=== PATIENT | female | born 1965 | race Caucasian/White ===

== ENCOUNTER → 2017-02-07 | Day surgery (SDC) | payer BC ==
[2017-01-02 13:35] VITALS: Ht 165.1 cm; Wt 79.1 kg
--- NOTE | 2017-01-28 08:21 | DIAGNOSTIC IMAGING REPORT ---
TWO VIEW CHEST CLINICAL HISTORY: Preoperative examination. FINDINGS: PA and lateral chest radiographs are compared to chest x-ray and chest CT dated 07/11/2011. The cardiomediastinal silhouette is unremarkable. There is mild atherosclerotic calcification of the thoracic aorta. The lungs and pleural spaces are clear. There is no pneumothorax. The bony thorax appears intact. Fusion hardware is noted in the cervical spine. IMPRESSION: No active disease in the chest. Electronically signed by: Kai Dow M.D. 01/28/2017 8:19 AM Dictated Date/Time: 01/28/2017 8:17 AM
[2017-01-28 09:41] LABS: HEMATOCRIT 40.7 % (37-47); MEAN CELL VOLUME 87.5 fL (80-100); MEAN CORPUSCULAR HEMOGLOBIN 29.7 pg (25-34); MEAN CORPUSCULAR HGB CONC 33.9 g/dl (32-36); MEAN PLATELET VOLUME 10.1 fL (7.4-10.4); PLATELET COUNT 248 K/uL (130-400); RED BLOOD COUNT 4.65 M/uL (4.2-5.4)
[2017-01-28 09:53] LABS: PARTIAL THROMBOPLASTIN RATIO 1.2; PROTHROMBIN TIME (PATIENT) 10.9 SECONDS (9.0-12.0)
[~2017-02-07] VITALS: Ht 165.1 cm; Wt 79.1 kg
[~2017-02-07] MED LIST: ATROPINE SULFATE 0.1 MG/ML 5ML SYR IV PRN; BUPIVACAINE 0.5 % 5 MG/1 ML MPF 30ML VIAL ONE; CEFAZOLIN 1000MG/55 ML D5W IV SCH; DEXAMETHASONE SOD INJ 4 MG/ML VIAL ONE; EpHEDrine SULFATE INJ 50 MG/ML AMP IV PRN; FENTANYL CITRATE INJ 50 MCG/1 ML 2 ML VIAL IV PRN; FENTANYL CITRATE INJ 50 MCG/1 ML 2 ML VIAL ONE; FLUO40CA8 PO; HYDROCODONE/ACETAMOPHEN 5/325MG TAB PO PRN; LACTATED RINGER'S 1000ML 1,000 ML IV SCH; LEVO125T72 PO; LIDOCAINE HCL 1% 20 ML VIAL ONE; LIDOCAINE HCL 2% 2 ML VIAL (20MG/ML) ONE; METOCLOPRAMIDE HCL INJ 5 MG/ML 2 ML VIAL IV PRN; MIDAZOLAM HCL 1 MG/ML 2ML VIAL ONE; ONDANSETRON INJ 2 MG/ML 2 ML VIAL IV PRN; ONDANSETRON INJ 2 MG/ML 2 ML VIAL ONE; OXYCODONE/ACETAMINOPHEN 5-325 TAB ONE; OXYCODONE/ACETAMINOPHEN 5-325 TAB PO PRN; PHENOL EZ SWABS 89% APPLICATOR EX ONE; PROPOFOL IV EMULSION 10 MG/ML 20 ML VIAL IV ONE; SILVER SULFADIAZINE 1% CR 50 GM JAR EXT ONE; SODIUM CHLORIDE 0.9% 1000ML 1,000 ML IV SCH
--- NOTE | 2017-02-07 06:51 | History & Physical Bridge - [place] ---
H&P Re-Evaluation Bridge Note: I have examined the patient, reviewed the History & Physical and in the interval since the performance of the History & Physical I have noted the following changes of clinical significance: No changes noted
[2017-02-07 08:43] VITALS: TEMP 36.4
--- NOTE | 2017-02-07 08:43 | Discharge Instructions-SurgCtr ---
Discharge Instructions Date of Service Feb 07, 2017. Visit Reason for Visit: Right 2ND Hammertoe, Metatarsalgia, Pain Discharge Discharge Diagnosis / Problem: right foot painful 2, 5 hammertoe and 2nd metatarsalgia, ingrown Discharge Goals Goal(s): Decrease discomfort, Improve function Activity Recommendations Activity Limitations: as noted below (use boot with partial weightbearing to the right foot with crutches) Lifting Limitations: none Exercise/Sports Limitations: none May Resume Sexual Activity: after follow-up appointment Shower/Bathe: keep incision dry Driving or Machine Use: no driving until cleared Weightbearing Status: Right partial Anesthesia . Post Anesthesia Instructions: If you have had General Anesthesia or IV Sedation: * Do not drive today. * Resume driving when surgeon permits. * Do not make important decisions or sign legal documents today. * Call surgeon for: 1. Temperature elevations greater than 101 degrees F. 2. Uncontrollable pain. 3. Excessive bleeding. 4. Persistent nausea and vomiting. 5. Medication intolerance (nausea, vomiting or rash). * For nausea and vomiting use only clear liquids such as: tea, soda, bouillon until nausea subsides, then gradually increase diet as tolerated. * If you have any concerns or questions, call your surgeon's office. If physician is unavailable and it is an emergency, call 911 or go to the nearest emergency room. . Instructions / Follow-Up Instructions / Follow-Up keep dressings clean dry and intact elevate right foot take pain medication as directed call [phone] with problems over the weekend f/u Friday with me Diet Recommendations Home Diet: no limitations Procedures Procedures Performed: Right Foot Second And Fifth Digit Surgical Correction Hammertoe Deformity Correction By Attempting To Remove The Bump And Realign The Joint With Fixation And Fusion With Right Second Metatarsal Shortening Osteotomy; Right Lateral Hallux Ingrown Toenail Removal Pending Studies Studies pending at discharge: no Medical Emergencies . Who to Call and When: Medical Emergencies: If at any time you feel your situation is an emergency, please call 911 immediately. . Non-Emergent Contact Non-Emergency issues call your: Primary Care Provider Call Non-Emergent contact if: temperature is above 101.5 [phone] . . "Provider Documentation" section prepared by Shanna Sinha. . [place] Drug Monitoring Program Search Results: patient reviewed within database, no issues identified
--- NOTE | 2017-02-07 08:46 | [facility] Post Operative Brief Note ---
Immediate Operative Summary Operative Date Feb 07, 2017. Pre-Operative Diagnosis Right Foot 2nd Hammertoe, Metatarsalgia, Pain Post-Operative Diagnosis same Procedure(s) Performed Right Foot Second And Fifth Digit Surgical Correction Hammertoe Deformity Correction By Attempting To Remove The Bump And Realign The Joint With Fixation And Fusion With Right Second Metatarsal Shortening Osteotomy; Right Lateral Hallux Ingrown Toenail Removal Surgeon Dr. Valarie Hendrix [employer] Surgeon(s) 0 Estimated Blood Loss 1 cc Findings none right foot Specimens A. Bone from Right Foot Drains none Anesthesia local iv sedation Complication(s) None Disposition Recovery Room / PACU
[2017-02-07 09:24] VITALS: BP 111/69; PULSE 56; O2SAT 96
--- NOTE | 2017-02-07 09:27 | Anesthesia Progress Nt - [facility] ---
Anesthesia Post Op Note Date & Time Feb 07, 2017 at 09:26 Vital Signs Pain Intensity: 4 Vital Signs Past 12 Hours Date Time Temp Pulse Resp B/P Pulse Ox O2 Delivery O2 Flow Rate FiO2 02/07/17 09:24 56 16 111/69 96 Room Air 02/07/17 08:43 36.4 60 14 118/78 95 Room Air 02/07/17 06:37 36.7 75 16 106/76 96 Room Air Notes Mental Status: alert / awake / arousable, participated in evaluation Pt Amnestic to Procedure: Yes Nausea / Vomiting: adequately controlled Pain: adequately controlled Airway Patency, RR, SpO2: stable & adequate BP & HR: stable & adequate Hydration State: stable & adequate Anesthetic Complications: no major complications apparent
--- NOTE | 2017-02-07 14:34 | DIAGNOSTIC IMAGING REPORT ---
INTRAOPERATIVE RADIOGRAPHS CLINICAL HISTORY: Second and fifth digit hammertoe correction. Fluoroscopy time: 13 seconds. FINDINGS: 2 spot fluoroscopic views of the right forefoot are correlated with radiographs of the right foot dated 04/15/2016. A cortical screw is present within the head of the second metatarsal. Pins transfix the second and fifth toes. This extends from the tip of the toe to the base of the proximal phalanx in the second toe, and from the tip of the toe to the metatarsal head in the fifth toe. There is no evidence of acute fracture on these fluoroscopic views. IMPRESSION: Intraoperative images from hammertoe correction in the second and fifth digits as above. Electronically signed by: Kai Dow M.D. 02/07/2017 8:58 AM Dictated Date/Time: 02/07/2017 8:56 AM
--- NOTE | 2017-02-07 18:12 | OPERATIVE REPORT ---
DATE OF OPERATION: 02/07/2017 SURGEON: Shanna Sinha DPM PREOPERATIVE DIAGNOSES: Painful right second digit hammertoe, fifth digit hammertoe and metatarsalgia and painful right hallux lateral nail border ingrown toe. POSTOPERATIVE DIAGNOSES: Same. PROCEDURE: Right second digit proximal interphalangeal joint arthrodesis or fusion with percutaneous 0.045 K-wire fixation, second metatarsal shortening osteotomy with fixation, fifth digit derotational arthroplasty with percutaneous 0.045 K-wire fixation and removal of hallux lateral nail border ingrown which is a partial nail avulsion with chemical matrixectomy. BLOOD LOSS: About 1 mL. HEMOSTASIS: Pneumatic ankle tourniquet at 250 mmHg. ANESTHESIA: Local IV sedation. DESCRIPTION OF THE PROCEDURE: The patient was brought in the operating room and placed in supine position. The right lower extremity was prepped and draped in the usual sterile manner. A 1:1 mixture of 1% lidocaine plain and 0.5% Marcaine was utilized to anesthetize the right foot at the second metatarsophalangeal joint and second metatarsal head and fifth metatarsophalangeal joint as well as the ring block at the hallux. At this time a timeout was taken, anesthesia was induced and the procedure began. First, attention was directed to the right second digit. A linear incision was made over the proximal interphalangeal joint that transversed across the second metatarsophalangeal joint as well to both the neck of the second metatarsal. Dissection was carried through the skin and subcutaneous tissues to the level of the joint capsule. Attention was first directed proximally at the second metatarsal head. T incision was made over the second metatarsal head with care to retain the collateral ligament to the second metatarsal as well as the plantar ligament. The second metatarsal head was exposed, a shortening osteotomy was performed and it was slightly shortened fixation was a 2 x 12 mm Arthrex cannulated screw which was driven from dorsal proximal to distal plantar and position checked with intraoperative fluoroscopy and found to be appropriate. Next, attention was directed to the second proximal interphalangeal joint. At this point, the long extensor tendon was transected in line with the joint and dissected both proximally and distally to expose the head of the proximal phalanx. The head of the proximal phalanx was excised utilizing the sagittal saw, the base of the middle phalanx was excised utilizing the bur and a sagittal saw. The area was flushed with copious amounts of normal saline. A 0.045 K-wire was driven first distally through the middle and distal phalanges and then proximally through the proximal phalanx. Position checked with intraoperative fluoroscopy and found to be appropriate. Next, attention was directed to the fifth digit and at this point, the fifth digit derotational arthroplasty was performed over the proximal interphalangeal joint. Dissection was carried through the skin and subcutaneous tissues to the level of the joint capsule, the joint capsule was inscribed. The elliptical incision made was excised to derotate the toe. The head of the proximal phalanx was resected utilizing the sagittal saw and was passed off the table and sent to pathology for permanent specimen. Next, the area was flushed with copious amounts of normal saline and the K-wire was driven first distally out the fifth toe and then proximally through the proximal phalanx and advanced into the fifth metatarsal head for stability. Again, the toe was taken in a derotational direction. The extensor tendon that was transected was reattached utilizing 3-0 Vicryl. The skin was closed utilizing 3-0 nylon in simple interrupted sutures. The second digit was also closed in a similar fashion and 3-0 Vicryl was used to realign, the long extensor tendon was transected. The subcutaneous tissues were closed with 3-0 Vicryl and the skin was closed with 3-0 nylon in a horizontal mattress and simple interrupted sutures, and the K-wires which were 0.045 remained as percutaneous fixation. Lastly, the lateral nail border of the hallux was addressed utilizing the freer elevator, the lateral nail border was loosened. Next, utilizing scissors, the lateral side of the nail border was excised. Utilizing a straight stylette it was removed. Phenol was applied and dressings consisting of Silvadene were applied. Dressings were applied in her foot. The tourniquet was deflated and patient had good hemodynamic response noted to all digits. The patient was taken to recovery room and had all vital signs stable and intact. She will follow up with me in the office in 1 week. She was made aware of all risks and benefits and did sign consent for the procedure. She did try conservative treatments such as injections, wider shoe gear, various toe caps and toe spacers to help with her hammertoe pain and her metatarsalgia pain; it did not improve. She failed conservative treatment and that is why she opted for surgical correction. I attest to the content of the Intraoperative Record and any orders documented therein. Any exceptions are noted below. ALINA
== END | disposition home or self-care (01) ==
LOC: X.SURG 06:22
PROVIDERS: ATTEND Podiatrist
DX: M20.41 Other hammer toe(s) (acquired), right foot (principal); M77.41 Metatarsalgia, right foot; M20.42 Other hammer toe(s) (acquired), left foot; L60.0 Ingrowing nail; M79.675 Pain in left toe(s); M79.674 Pain in right toe(s); E66.8 Other obesity; Z68.29 Body mass index [BMI] 29.0-29.9, adult; Z98.890 Other specified postprocedural states; Z98.84 Bariatric surgery status; Z80.3 Family history of malignant neoplasm of breast; Z80.0 Family history of malignant neoplasm of digestive organs; Z83.3 Family history of diabetes mellitus

== ENCOUNTER → 2018-02-12 | Outpatient (CLI) | payer OTHER ==
[~2018-02-12] MED LIST changes: -ATROPINE SULFATE 0.1 MG/ML 5ML SYR IV PRN; -BUPIVACAINE 0.5 % 5 MG/1 ML MPF 30ML VIAL ONE; -CEFAZOLIN 1000MG/55 ML D5W IV SCH; -DEXAMETHASONE SOD INJ 4 MG/ML VIAL ONE; -EpHEDrine SULFATE INJ 50 MG/ML AMP IV PRN; -FENTANYL CITRATE INJ 50 MCG/1 ML 2 ML VIAL IV PRN; -FENTANYL CITRATE INJ 50 MCG/1 ML 2 ML VIAL ONE; -HYDROCODONE/ACETAMOPHEN 5/325MG TAB PO PRN; -LACTATED RINGER'S 1000ML 1,000 ML IV SCH; -LIDOCAINE HCL 1% 20 ML VIAL ONE; -LIDOCAINE HCL 2% 2 ML VIAL (20MG/ML) ONE; -METOCLOPRAMIDE HCL INJ 5 MG/ML 2 ML VIAL IV PRN; -MIDAZOLAM HCL 1 MG/ML 2ML VIAL ONE; -ONDANSETRON INJ 2 MG/ML 2 ML VIAL IV PRN; -ONDANSETRON INJ 2 MG/ML 2 ML VIAL ONE; -OXYCODONE/ACETAMINOPHEN 5-325 TAB ONE; -OXYCODONE/ACETAMINOPHEN 5-325 TAB PO PRN; -PHENOL EZ SWABS 89% APPLICATOR EX ONE; -PROPOFOL IV EMULSION 10 MG/ML 20 ML VIAL IV ONE; -SILVER SULFADIAZINE 1% CR 50 GM JAR EXT ONE; -SODIUM CHLORIDE 0.9% 1000ML 1,000 ML IV SCH
--- NOTE | 2018-02-12 14:24 | DIAGNOSTIC IMAGING REPORT ---
C-SPINE ROUTINE 4 OR 5 VIEWS CLINICAL HISTORY: Neck pain status post trauma COMPARISON STUDY: MRI performed November 2015 FINDINGS: There are postsurgical changes of a anterior cervical fusion, involving the C5-C7 levels.. There are exuberant anterior osteophytes at the inferior C3 and C4 levels. There are no acute fractures. There is no evidence of significant bony foraminal stenosis.. IMPRESSION: 1. Postsurgical changes at the C5 through C7 levels 2. Prominent anterior osteophytic spurs at the C3 and C4 levels. Electronically signed by: Gerardo Dela Cruz M.D. 02/12/2018 2:22 PM Dictated Date/Time: 02/12/2018 2:20 PM
--- NOTE | 2018-02-12 14:25 | DIAGNOSTIC IMAGING REPORT ---
L-SPINE MIN 4 VIEWS ROUTINE CLINICAL HISTORY: Back pain status post trauma COMPARISON STUDY: None FINDINGS: No acute fractures or subluxations are visualized. There are degenerative changes most pronounced the L3-4 and L5-S1 levels. There is no pathologic bowel dilatation. There are multiple nonspecific pelvic basin calcifications, likely representing phleboliths. IMPRESSION: 1. No fractures or subluxations identified 2. Degenerative changes most pronounced the L3-4 and L5-S1 levels Electronically signed by: Gerardo Dela Cruz M.D. 02/12/2018 2:24 PM Dictated Date/Time: 02/12/2018 2:23 PM
== END | disposition home or self-care (01) ==
LOC: C.RAD1850 13:55
PROVIDERS: ATTEND Nurse Practitioner Adult Health
DX: M47.896 Other spondylosis, lumbar region (principal); M54.2 Cervicalgia; W19.XXXA Unspecified fall, initial encounter